=== PATIENT | female | born 1960 ===

== ENCOUNTER 2017-07-18 18:04 | Emergency (ER) | payer OTHER ==
[2017-07-18 18:12] VITALS: BP 155/90; RESP 32; O2SAT 98
--- NOTE | 2017-07-18 18:42 | ED PDOC ---
- ECG O2 Sat by Pulse Oximetry: 98 Disposition - Disposition
--- NOTE | 2017-07-18 18:47 | ED PDOC ---
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 Patient accompanied by her daughter who states they recently received some upsetting news regarding the patient's mother, and she felt the patient get "heavy" and while she was attempting to hold up the patient , the patient had a syncopal episode. Daughter denies any seizure like activities. She also denies any falls or head injuries due to the syncopal episode. No other complaints. Past Medical History Reviewed: Historical Data, Nursing Documentation, Vital Signs Vital Signs: Last Vital Signs Temp Pulse 107 H 07/18/17 18:56 Resp 32 H 07/18/17 18:07 BP 155/90 H 07/18/17 18:07 Pulse Ox 98 07/18/17 18:56 - Medical History PMH: Anxiety, Arthritis, Depression, Hypercholesterolemia, Seizures - Surgical History Surgical History: Cholecystectomy - Family History Family History: States: No Known Family Hx - Living Arrangements Living Arrangements: With Family - Social History Current smoker - smoking cessation education provided: No Ex-Smoker (has not smoked in the last 12 months): No Alcohol: Occasional Drugs: Denies - Immunization History Hx Tetanus Toxoid Vaccination: Yes Hx Influenza Vaccination: Yes Hx Pneumococcal Vaccination: No - Home Medications Home Medications: Ambulatory Orders Medication Instructions Recorded Etodolac 500 mg PO BID PRN 12/17/14 Lorazepam 1 mg PO HS 12/17/14 Phenytoin Sodium Extended 100 mg PO TID 12/17/14 [Dilantin] Simvastatin [Zocor] 10 mg PO DAILY 12/17/14 traMADol [Ultram] 50 mg PO BID PRN #60 tab 12/17/14 - Allergies Allergies/Adverse Reactions: Allergies Allergy/AdvReac Type Severity Reaction Status Date / Time No Known Allergies Allergy Verified 07/18/17 18:06 Review of Systems ROS Statement: Except As Marked, All Systems Reviewed And Found Negative Neurological: Positive for: Other (syncopal episode) Psych: Positive for: Anxiety Physical Exam - Reviewed Nursing Documentation Reviewed: Yes Vital Signs Reviewed: Yes - Physical Exam Appears: Positive for: Non-toxic Head Exam: Positive for: ATRAUMATIC Eye Exam: Positive for: Normal appearance, EOMI, PERRL ENT: Positive for: Normal ENT Inspection. Negative for: Pharyngeal Erythema, Tonsillar Exudate, Tonsillar Swelling Neck: Positive for: Supple Cardiovascular/Chest: Positive for: Regular Rate, Rhythm. Negative for: Murmur Respiratory: Positive for: Normal Breath Sounds. Negative for: Wheezing Gastrointestinal/Abdominal: Positive for: Normal Exam, Soft. Negative for: Tenderness Extremity: Positive for: Normal ROM. Negative for: Pedal Edema Neurologic/Psych: Positive for: Alert, Oriented, Mood/Affect (anxious appearing , tearful during exam) - ECG ECG: Positive for: Interpreted By Me, Viewed By Me ECG Rhythm: Positive for: Normal QRS, Sinus Rhythm. Negative for: ST/T Changes Rate: 107 O2 Sat by Pulse Oximetry: 98 (RA) Pulse Ox Interpretation: Normal Medical Decision Making Medical Decision Making: Impression: Anxiety attack, syncopal episode Differential: Less likely seizure, r/o arrhythmia, ACS Plan: -- Labs -- EKG -- CXR -- CT Head w/o contrast -- Ativan 1mg IV Time: 0 Patient to be signed out to Dr. Harris pending labs, CT results and re- evaluation. Scribe Attestation: Documented by Yocasta Márquez acting as a scribe for Grace Maravilla MD. Provider Attestation: All medical record entries made by the Scribe were at my direction and personally dictated by me. I have reviewed the chart and agree that the record accurately reflects my personal performance of the history, physical exam, medical decision making, and the department course for this patient. I have also personally directed, reviewed, and agree with the discharge instructions and disposition. Disposition - Patient ED Disposition Is Patient to be Admitted: Transfer of Care - Disposition Disposition: Transfer of Care Disposition Time: 19:00 Condition: STABLE Forms: [employer] (Albanian) Patient Signed Over To: Stanford Harris
[2017-07-18 18:56] VITALS: PULSE 107
--- NOTE | 2017-07-18 19:04 | CP.PCM.PCO ---
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 Patient was just receiving a upsetting new regarding her mother medical condition and patient had generalized weakness and had to be sit on a chair. Patients daughter reports she passes out for 5 seconds. On arrival response patient was awake, arousal to tactil and verbal stimulation and oriented, crying for her critical mother medical condition. VS: BP: 160/85 HR: 105 O2sat: 99 T: 98.1 Accucheck: 99 General: sitting, crying CV: RRR. + S1, S2, No M/R/G Resp:CTA. No rhonchi, wheezing Abd: + Bs. Soft, No TD, no guarding, no rebound Neuro: AOOx3, no motor deficit appreciated A: Anxiety attack, syncopal episode P: Patient transferred on wheelchair to ED with nurse, Hospitalist Dr Muro and Resident Dr Davis and endorsed to ED Attending.
[2017-07-18 19:09] LABS: BASO % 0.5 % (0.0-2.0); EOS # 0.2 K/uL (0.0-0.7); HEMOGLOBIN 12.6 g/dL (12.0-16.0); LYMPH # 1.4 K/uL (1.0-4.3); LYMPH % 24.2 % (20.0-40.0); MEAN CELL VOLUME 92.5 fl (81.0-99.0); MEAN CORPUSCULAR HEMOGLOBIN 31.5 pg (27.0-31.0); MEAN CORPUSCULAR HGB CONC 34.1 g/dL (33.0-37.0); MONO # 0.6 K/uL (0.0-0.8); MONO % 9.6 % (0.0-10.0); NEUT # 3.7 K/uL (1.8-7.0); NEUT % 61.7 % (50.0-75.0); NRBC % 0.1 % (0.0-0.0); RBC 3.98 Mil/uL (3.80-5.20); RED CELL DISTRIBUTION WIDTH 12.7 % (11.5-14.5)
[2017-07-18 19:17] LABS: BLOOD UREA NITROGEN 14 mg/dl (7-17); CALCIUM 9.2 mg/dL (8.4-10.2); GFR AFRICAN-AMERICAN > 60; GFR NON-AFRICAN AMERICAN > 60
--- NOTE | 2017-07-18 19:28 | ED PDOC ---
- Laboratory Results Result Diagrams: 07/18/17 19:00 07/18/17 19:00 - ECG O2 Sat by Pulse Oximetry: 98 (RA) Pulse Ox Interpretation: Normal Medical Decision Making Medical Decision Making: Time: 1899 Patient signed out to me by Dr. Maravilla pending labs, CT results, reevaluation. Time: 1946 CT Head FINDINGS: BRAIN: Focal cortical atrophy/volume loss involving the right frontal lobe superiorly. Enlargement of the extra-axial space overlying the right frontal lobe superiorly. No significant acute abnormality identified. No acute hemorrhage seen within the brain. No acute extra-axial fluid collections visualized. No evidence of significant mass effect within the brain. VENTRICLES: No evidence of significant hydrocephalus. BONES/JOINTS: Best seen on image 42 series 3, there is a large, crescent-shaped calcification with smooth, lobulated margins in the extra-axial space overlying the right posterior frontal and parietal lobes, which measures 6 x 5 x 1.2 cm. Appearance is not typical for a large, calcified meningioma. No evidence of associated lytic bony destruction or aggressive periosteal reaction. SOFT TISSUES: No acute abnormality of the visualized soft tissues is seen. SINUSES: Visualized paranasal sinuses appear clear. MASTOID AIR CELLS: Mastoid air cells appear clear. IMPRESSION: - No acute findings seen within the brain. No evidence of intracranial hemorrhage. - Large 6 x 5 cm crescent-shaped calcification in the right frontoparietal extra -axial space, with nearby right frontal lobe atrophy/volume loss. Findings are of uncertain etiology, but appear chronic, and could be related to remote trauma. Followup nonemergent MRI of the brain of the brain would be helpful for further evaluation of the findings, as clinically indicated. - See above for remaining findings. Thank you for allowing us to participate in the care of your patient. Time: [address] head findings. Lab reviewed and within normal limits. Patient with improvement in ER and is stable for discharge home. Scribe Attestation: Documented by Yocasta Márquez acting as a scribe for Stanford Harris MD. Provider Scribe Attestation: All medical record entries made by the Scribe were at my direction and personally dictated by me. I have reviewed the chart and agree that the record accurately reflects my personal performance of the history, physical exam, medical decision making, and the department course for this patient. I have also personally directed, reviewed, and agree with the discharge instructions and disposition. Disposition - Clinical Impression Clinical Impression: Anxiety attack - POA Present On Arrival: None - Disposition Disposition: Routine/Home Disposition Time: 20:10 Condition: STABLE Instructions: Anxiety (ED) Forms: [facility] (Bengali)
--- NOTE | 2017-07-18 19:48 | CT ---
EXAM: CT Head Without Intravenous Contrast EXAM DATE/TIME: 07/18/2017 6:28 PM CLINICAL HISTORY: 57 years old, female; Signs and symptoms; Syncope and collapse; Additional info: Syncope. Sent phy. Doc. TECHNIQUE: Axial computed tomography images of the head/brain without intravenous contrast. All CT scans at this facility use one or more dose reduction techniques, viz.: automated exposure control; ma/kV adjustment per patient size (including targeted exams where dose is matched to indication; i.e. head); or iterative reconstruction technique. Coronal and sagittal reformatted images were created and reviewed. COMPARISON: No relevant prior studies available. FINDINGS: BRAIN: Focal cortical atrophy/volume loss involving the right frontal lobe superiorly. Enlargement of the extra-axial space overlying the right frontal lobe superiorly. No significant acute abnormality identified. No acute hemorrhage seen within the brain. No acute extra-axial fluid collections visualized. No evidence of significant mass effect within the brain. VENTRICLES: No evidence of significant hydrocephalus. BONES/JOINTS: Best seen on image 42 series 3, there is a large, crescent-shaped calcification with smooth, lobulated margins in the extra-axial space overlying the right posterior frontal and parietal lobes, which measures 6 x 5 x 1.2 cm. Appearance is not typical for a large, calcified meningioma. No evidence of associated lytic bony destruction or aggressive periosteal reaction. SOFT TISSUES: No acute abnormality of the visualized soft tissues is seen. SINUSES: Visualized paranasal sinuses appear clear. MASTOID AIR CELLS: Mastoid air cells appear clear. IMPRESSION: - No acute findings seen within the brain. No evidence of intracranial hemorrhage. - Large 6 x 5 cm crescent-shaped calcification in the right frontoparietal extra-axial space, with nearby right frontal lobe atrophy/volume loss. Findings are of uncertain etiology, but appear chronic, and could be related to remote trauma. Followup nonemergent MRI of the brain of the brain would be helpful for further evaluation of the findings, as clinically indicated. - See above for remaining findings.
--- NOTE | 2017-07-19 14:37 | CARD ---
APPROVED REPORT EKG Measurement Heart [id number] NM [id number] <Conclusion> Sinus tachycardia Low voltage QRS Possible inferior infarct, age undetermined Abnormal ECG probable motion artefact-recommend repeat
[2017-07-21 01:01] LABS: PHENYTOIN,FREE 0.8 mg/L (1.0-2.0)
== END 2017-07-18 21:45 | disposition home or self-care (01) ==
LOC: H.ER 18:04
DX: F41.1 Generalized anxiety disorder (principal); E78.5 Hyperlipidemia, unspecified; G40.909 Epilepsy, unspecified, not intractable, without status epilepticus
CPT/HCPCS: 70450; 80048; 80186; 82948; 84484; 85025; 93005; 99282; J2060

== ENCOUNTER 2017-08-07 14:43 | Emergency (ER) | payer OTHER ==
[2017-08-07 14:53] VITALS: BP 132/83; PULSE 91; RESP 18; TEMP 98.3; O2SAT 100
[2017-08-07] MEDS ORDERED: Oxycodone/Acetaminophen 5/325 mg Tab PO STA (15:25)
--- NOTE | 2017-08-07 15:55 | ED PDOC ---
Lower Extremity Pain/Injury Time Seen by Provider: 08/07/17 15:03 Chief Complaint (Nursing): Lower Extremity Problem/Injury Chief Complaint (Provider): Lower Extremity Problem/Injury History Per: Patient, Family (daughter), Other (sign out clerk) History/Exam Limitations: no limitations Onset/Duration Of Symptoms: Sudden Onset Current Symptoms Are (Timing): Still Present Additional Complaint(s): 57 year old female with medial history of arthritis, presents to the emergency department with sign out clerk and daughter (Deepthi) for an evaluation of bilateral leg pain (right > left). Patient was sitting in a chair when it collapsed prior to arrival. She denied any hip pain, back pain, head injury, loss of consciousness, numbness or tingling sensation. Daughter reported patient has history of polio with left leg shorter than right as baseline. PMD: none provided Past Medical History Reviewed: Historical Data, Nursing Documentation, Vital Signs Vital Signs: Last Vital Signs Temp 98.3 F 08/07/17 14:50 Pulse 91 H 08/07/17 14:50 Resp 18 08/07/17 14:50 BP 132/83 08/07/17 14:50 Pulse Ox 100 08/07/17 14:50 - Medical History PMH: Anxiety, Arthritis, Depression, Hypercholesterolemia, Seizures - Surgical History Surgical History: Cholecystectomy - Family History Family History: States: Unknown Family Hx - Social History Current smoker - smoking cessation education provided: No Alcohol: None Drugs: Denies - Immunization History Hx Tetanus Toxoid Vaccination: Yes Hx Influenza Vaccination: Yes Hx Pneumococcal Vaccination: No - Home Medications Home Medications: Ambulatory Orders Medication Instructions Recorded Etodolac 500 mg PO BID PRN 12/17/14 Lorazepam 1 mg PO HS 12/17/14 Phenytoin Sodium Extended 100 mg PO TID 12/17/14 [Dilantin] Simvastatin [Zocor] 10 mg PO DAILY 12/17/14 traMADol [Ultram] 50 mg PO BID PRN #60 tab 12/17/14 Tramadol HCl [Ultram] 50 mg PO BID PRN #8 tablet 08/07/17 - Allergies Allergies/Adverse Reactions: Allergies Allergy/AdvReac Type Severity Reaction Status Date / Time No Known Allergies Allergy Verified 07/18/17 18:06 Review of Systems ROS Statement: Except As Marked, All Systems Reviewed And Found Negative Genitourinary Female: Negative for: Pelvic Pain Musculoskeletal: Positive for: Leg Pain (right > left), Other (chronic shorter left leg). Negative for: Back Pain Neurological: Negative for: Numbness (or tingling), Other (head injury or LOC) Physical Exam - Reviewed Nursing Documentation Reviewed: Yes Vital Signs Reviewed: Yes - Physical Exam Appears: Positive for: Non-toxic, No Acute Distress Head Exam: Positive for: ATRAUMATIC, NORMAL INSPECTION, NORMOCEPHALIC Neck: Positive for: Normal, Painless ROM Cardiovascular/Chest: Positive for: Regular Rate, Rhythm, Chest Non Tender Respiratory: Positive for: Normal Breath Sounds. Negative for: Decreased Breath Sounds, Respiratory Distress Pulses-Dorsalis Pedis (L): 2+ Pulses-Dorsalis Pedis (R): 2+ Pulses-Femoral (L): 2+ Pulses-Femoral (R): 2+ Pulses-Post. Tibialis (L): 2+ Pulses-Post. Tibialis (R): 2+ Gastrointestinal/Abdominal: Positive for: Normal Exam, Soft. Negative for: Tenderness Pelvic Exam: Positive for: External Exam Normal. Negative for: Other (hip/ pelvic tenderness) Back: Positive for: Normal Inspection. Negative for: L CVA Tenderness, R CVA Tenderness, Vertebral Tenderness Extremity: Positive for: Tenderness (and ecchymosis to bilateral distal legs; right ankle), Deformity (left ankle chronically). Negative for: Other ( deformity to bilateral distal legs or right ankle) Neurologic/Psych: Positive for: Alert, Oriented. Negative for: Motor/Sensory Deficits - ECG O2 Sat by Pulse Oximetry: 100 (RA) Pulse Ox Interpretation: Normal Medical Decision Making Medical Decision Making: Initial Impression: Bilateral leg pain Initial Plan: * Xray ankle (LYN) * Xray tibia/fibula (LYN) * Percocet 5/325mg PO 1700 B/L ankle x-rays: Unilateral degenerative changes left ankle and foot. No acute findings B/L tib/fib x-rays: Soft tissue swelling without acute articular or osseous abnormality. Scribe Attestation: Documented by Monique Rossi, acting as a scribe for Bhupendra Renteria PA-C. Provider Scribe Attestation: All medical record entries made by the Scribe were at my direction and personally dictated by me. I have reviewed the chart and agree that the record accurately reflects my personal performance of the history, physical exam, medical decision making, and the department course for this patient. I have also personally directed, reviewed, and agree with the discharge instructions and disposition. Disposition - Clinical Impression Clinical Impression: Contusion of leg - Patient ED Disposition Is Patient to be Admitted: No - Disposition Disposition: Routine/Home Disposition Time: 17:03 Condition: STABLE Prescriptions: Tramadol HCl [Ultram] 50 mg PO BID PRN #8 tablet PRN Reason: pain Instructions: Contusion (DC) Forms: [employer] (Jamaican) Print Language: ETHIOPIAN
[2017-08-07] MEDS ORDERED: Oxycodone/Acetaminophen 5/325 mg Tab ONE (16:14)
--- NOTE | 2017-08-07 16:52 | RAD ---
PROCEDURE: Radiographs of the bilateral Tibiae and Fibulae. HISTORY: trauma COMPARISON: None available. TECHNIQUE: Frontal and lateral views obtained. FINDINGS: BONES: RIGHT TIBIA: No fracture or destructive lesion. LEFT TIBIA: No fracture or destructive lesion. JOINT SPACES: RIGHT TIBIA: Normal. LEFT TIBIA: Normal. SOFT TISSUES: RIGHT TIBIA: Soft tissue swelling right calf region LEFT TIBIA: Normal. OTHER FINDINGS: None. IMPRESSION: Soft tissue swelling without acute articular or osseous abnormality.
--- NOTE | 2017-08-07 16:56 | RAD ---
PROCEDURE: Bilateral ankles HISTORY: trauma COMPARISON: None TECHNIQUE: Standard protocol for this study/examination. FINDINGS: Right ankle: No significant/acute osseous, articular or soft tissue abnormalities. Left ankle: Degenerative changes primarily affecting talar fibular and talonavicular joints. IMPRESSION: Unilateral degenerative changes left ankle and foot. No acute findings
== END 2017-08-07 17:47 | disposition home or self-care (01) ==
LOC: H.ER 14:43
DX: S80.12XA Contusion of left lower leg, initial encounter (principal); S80.11XA Contusion of right lower leg, initial encounter; W07.XXXA Fall from chair, initial encounter; Y92.89 Other specified places as the place of occurrence of the external cause